=== PATIENT | male | born 1975 | race Caucasian/White ===

== ENCOUNTER 2024-05-09 13:02 | Day surgery (SDC) | payer OTHER ==
[2024-05-09] MEDS ORDERED: Depo-Medrol 40 MG/ML IM ONE (13:03)
[2024-05-09] MEDS ORDERED: LIDOCAINE HCL 2% 100 MG/5 ML IJ ONE (13:03)
[2024-05-09] MEDS ORDERED: Reglan 10 MG/2 ML ONE (13:23)
[2024-05-09] MEDS ORDERED: propofoL IV ONE (15:02)
--- NOTE | 2024-05-09 17:00 | XRAY ---
Indication: Bilateral L4-S1 MBB. Intraoperative fluoroscopy provided for 8 seconds. Single digital spot image submitted for interpretation demonstrates posterior needle tips projecting over expected left and right L4-S1 nerve roots. Correlate with intraoperative findings/report.
--- NOTE | 2024-05-09 18:24 | XRAY ---
8 seconds of fluoroscopy was used in surgery for a bilateral L4-S1 MBB.
== END 2024-05-09 15:48 | disposition home or self-care (01) ==
LOC: SDC-PAIN 13:02
PROVIDERS: ATTEND Psychiatry & Neurology Pain Medicine
DX: M47.816 Spondylosis without myelopathy or radiculopathy, lumbar region (principal)
CPT/HCPCS: 64493; 64494; 72020; J2704

== ENCOUNTER 2024-05-30 13:48 | Day surgery (SDC) | payer OTHER ==
[2024-05-30] MEDS ORDERED: Depo-Medrol 40 MG/ML IM ONE (13:49)
[2024-05-30] MEDS ORDERED: BUPIVACAINE 0.5% VIAL IJ ONE (13:49)
[2024-05-30] MEDS ORDERED: propofoL IV ONE (16:06)
--- NOTE | 2024-05-30 16:33 | XRAY ---
Indication: Bilateral L4-S1 MBB. Intraoperative fluoroscopy provided for 13 seconds. Single digital spot image submitted for interpretation demonstrates posterior needle tips projecting over expected left and right L4-S1 nerve roots. Correlate with intraoperative findings/report.
--- NOTE | 2024-05-31 19:24 | XRAY ---
13 seconds of fluoroscopy was used in surgery for a bilateral L4-S1 MBB.
== END 2024-05-30 16:34 | disposition home or self-care (01) ==
LOC: SDC-PAIN 13:48
PROVIDERS: ATTEND Psychiatry & Neurology Pain Medicine
DX: M47.817 Spondylosis without myelopathy or radiculopathy, lumbosacral region (principal)
CPT/HCPCS: 64493; 64494; 72020; J2704

== ENCOUNTER 2024-06-20 13:00 | Day surgery (SDC) | payer OTHER ==
[2024-06-20] MEDS ORDERED: BUPIVACAINE 0.5% VIAL IJ ONE (13:01)
[2024-06-20] MEDS ORDERED: methylPREDNISolone acetate IM ONE (13:01)
[2024-06-20] MEDS ORDERED: LIDOCAINE HCL 1% 50 MG/5 ML VL IJ ONE (13:01)
[2024-06-20] MEDS ORDERED: propofoL IV ONE (16:03)
[2024-06-20] MEDS ORDERED: Lactated Ringers 1,000 ML IV ONE (16:54)
--- NOTE | 2024-06-20 19:01 | XRAY ---
Indication: Left L4-S1 RFA. Intraoperative fluoroscopy provided for 15 seconds. 3 digital spot image submitted for interpretation demonstrates posterior needle tips projecting over expected left L4-S1 nerve roots. Correlate with intraoperative findings/report.
--- NOTE | 2024-06-21 08:52 | XRAY ---
15 seconds of fluoroscopy was used in surgery for a left L4-S1 RFA.
== END 2024-06-20 16:29 | disposition home or self-care (01) ==
LOC: SDC-PAIN 13:00
PROVIDERS: ATTEND Psychiatry & Neurology Pain Medicine
DX: M47.817 Spondylosis without myelopathy or radiculopathy, lumbosacral region (principal)
CPT/HCPCS: 64635; 64636; 72100; J1010; J2704

== ENCOUNTER 2024-06-21 11:35 | Day surgery (SDC) | payer OTHER ==
[2024-06-21] MEDS ORDERED: BUPIVACAINE 0.5% VIAL IJ ONE (11:36)
[2024-06-21] MEDS ORDERED: LIDOCAINE HCL 1% AMPUL 5 ML IJ ONE (11:36)
[2024-06-21] MEDS ORDERED: methylPREDNISolone acetate IM ONE (11:36)
[2024-06-21] MEDS ORDERED: propofoL IV ONE (13:23)
--- NOTE | 2024-06-21 14:05 | XRAY ---
Indication: Right L4-S1 RFA. Intraoperative fluoroscopy provided for 21 seconds. 4 digital spot images submitted for interpretation demonstrates posterior needle tips projecting over expected right L4-S1 nerve roots. Correlate with intraoperative findings/report.
--- NOTE | 2024-06-21 14:07 | XRAY ---
21 seconds of fluoroscopy were used in surgery for a right L4-S1 RFA.
== END 2024-06-21 13:53 | disposition home or self-care (01) ==
LOC: SDC-PAIN 11:35
PROVIDERS: ATTEND Psychiatry & Neurology Pain Medicine
DX: M47.816 Spondylosis without myelopathy or radiculopathy, lumbar region (principal)
CPT/HCPCS: 64635; 64636; 72100; J1010; J2704